=== PATIENT | female | born 1970 | race Caucasian/White ===

== ENCOUNTER 2023-08-22 11:04 | Inpatient (IN) | payer OTHER ==
[2023-08-22] MEDS ORDERED: CEFTRIAXONE 1 GM in DEXTROSE 5%-WATER - 50 ML IVPB ONE (11:27)
[2023-08-22 11:52] LABS: VENOUS BASE EXCESS 0.5 mmol/L (-2-2); VENOUS O2 SATURATION 49.7 % (70-80); VENOUS PH 7.394 (7.310-7.410)
[2023-08-22 11:54] LABS: BASO % 0.3 % (0-2.0); HEMATOCRIT 40.7 % (32.4-45.2); HEMOGLOBIN 13.7 GM/dL (10.7-15.3); LYMPH % 6.4 % (8-40); MCH 30.6 pg (25.7-33.7); MCHC 33.8 g/dl (32.0-36.0); MEAN CELL VOLUME 90.8 fl (80-96); MEAN PLT VOLUME 7.6 fl (7.5-11.1); NEUT % 85.3 % (42.8-82.8); PLATELET COUNT 350 10^3/uL (134-434); RBC 4.49 M/mm3 (3.60-5.2); RDW 12.8 % (11.6-15.6); WHITE BLOOD COUNT 12.2 K/mm3 (4.0-10.0)
[2023-08-22] MEDS ORDERED: CEFTRIAXONE 1 GM/50 ML BAG ONE (11:58)
[2023-08-22] MEDS ORDERED: AZITHROMYCIN IVPB 500 MG/250 ML BAG IVPB ONE ×2 (11:58→12:15)
[2023-08-22 12:02] LABS: INR 1.13 (0.83-1.09); PROTHROMBIN TIME (PATIENT) 13.1 SEC (9.7-13.0)
[2023-08-22 12:05] LABS: ACTIVATED PTT 29.5 SECONDS (25.2-36.5)
[2023-08-22 12:12] LABS: POTASSIUM 3.4 mmol/L (3.5-5.1)
[2023-08-22 12:14] LABS: ALBUMIN 2.9 g/dl (3.4-5.0); BLOOD UREA NITROGEN 13.8 mg/dL (7-18); CALCIUM 9.3 mg/dL (8.5-10.1)
[2023-08-22] MEDS ORDERED: ACETAMINOPHEN 1000 MG/100 ML BAG IVPB ONE (12:15)
[2023-08-22 12:17] LABS: CREATININE 0.8 mg/dL (0.55-1.3)
[2023-08-22 12:19] LABS: BILIRUBIN,TOTAL 0.7 mg/dL (0.2-1); TOT PROT 7.2 g/dl (6.4-8.2)
[2023-08-22 12:23] LABS: LACTIC ACID 2.6 mmol/L (0.4-2.0)
[2023-08-22] MEDS ORDERED: ACETAMINOPHEN INJECTION 100 ML IVPB ONE ×2 (12:48→19:50)
[2023-08-22] MEDS ORDERED: POTASSIUM CHLORIDE ORAL LIQUID 20 MEQ/15 ML PO ONE (12:53)
[2023-08-22] MEDS ORDERED: SODIUM CHLORIDE 0.9% 500 ML INFUS.BAG IV ONE (12:58)
[2023-08-22] MEDS ORDERED: ALBUTEROL SO4 0.083% IH SOL 2.5 MG/3 ML VIAL.NEB. NEB PRN (13:29)
[2023-08-22] MEDS ORDERED: methylPREDNISolone NA SUCC 40 MG/1 ML VIAL IVPUSH SCH (13:32)
[2023-08-22] MEDS ORDERED: ACETAMINOPHEN 1000 MG/100 ML BAG IVPB PRN (13:45)
[2023-08-22] MEDS ORDERED: methylPREDNISolone NA SUCC 40 MG/1 ML VIAL ONE (14:01)
[2023-08-22] MEDS ORDERED: guaiFENesin 200 MG/10 ML 10 ML UNIT-DOSE CUPS PO PRN (14:04)
[2023-08-22] MEDS ORDERED: POTASSIUM CHLORIDE ORAL LIQUID 20 MEQ/15 ML ONE (15:22)
[2023-08-22 16:18] LABS: LACTIC ACID 2.2 mmol/L (0.4-2.0)
[2023-08-22] MEDS ORDERED: ALBUTEROL SO4 2.5/IPRATROPIUM 0.5 INH SOL 3 ML VIAL.NEB. NEB ONE ×2 (17:45→19:54)
[2023-08-22] MEDS: ALBUTEROL SO4 2.5/IPRATROPIUM 0.5 INH SOL 3 ML VIAL.NEB. NEB SCH ×2 (17:53→20:21)
[2023-08-22] MEDS: SODIUM CHLORIDE 1,000 ML IV SCH (18:34)
[2023-08-22] MEDS: BUDESONIDE/FORMETEROL FUMARATE 160/4.5 mcg INHALER IH SCH (23:02)
[2023-08-22] MEDS: QUEtiapine FUMARATE 100 MG TABLET (FP) PO SCH (23:02)
[2023-08-22] MEDS: MONTELUKAST NA 10 MG TABLET PO SCH (23:02)
[2023-08-22] MEDS: ZIPRASIDONE 60 MG CAPSULE PO SCH (23:03)
[2023-08-22] MEDS: lamoTRIgine 100 MG TABLET PO SCH (23:03)
[2023-08-23] MEDS: ALBUTEROL SO4 2.5/IPRATROPIUM 0.5 INH SOL 3 ML VIAL.NEB. NEB SCH ×6 (04:00→21:47)
[2023-08-23 07:03] LABS: HEMATOCRIT 34.6 % (32.4-45.2); HEMOGLOBIN 11.7 GM/dL (10.7-15.3); MCH 30.9 pg (25.7-33.7); MCHC 33.8 g/dl (32.0-36.0); MEAN CELL VOLUME 91.6 fl (80-96); MEAN PLT VOLUME 7.4 fl (7.5-11.1); PLATELET COUNT 316 10^3/uL (134-434); RBC 3.78 M/mm3 (3.60-5.2); RDW 12.8 % (11.6-15.6); WHITE BLOOD COUNT 9.8 K/mm3 (4.0-10.0)
[2023-08-23 07:12] LABS: POTASSIUM 4.1 mmol/L (3.5-5.1)
[2023-08-23 07:14] LABS: ALBUMIN 2.4 g/dl (3.4-5.0); CALCIUM 8.1 mg/dL (8.5-10.1); MAGNESIUM 2.3 mg/dL (1.8-2.4)
[2023-08-23 07:17] LABS: CREATININE 0.6 mg/dL (0.55-1.3)
[2023-08-23 07:19] LABS: BILIRUBIN,TOTAL 0.4 mg/dL (0.2-1)
[2023-08-23] MEDS ORDERED: AZITHROMYCIN IVPB 250 MG in DEXTROSE 5%-WATER - 250 ML IVPB SCH (10:00)
[2023-08-23] MEDS: CEFTRIAXONE 1 GM in DEXTROSE 5%-WATER - 50 ML IVPB SCH (10:30)
[2023-08-23] MEDS: ENOXAPARIN NA (PORCINE) 40 MG/0.4 ML DISP.SYRIN SQ SCH (11:09)
[2023-08-23] MEDS: DULoxetine HCL 30 MG CAPSULE.DR PO SCH (11:09)
[2023-08-23] MEDS: lamoTRIgine 100 MG TABLET PO SCH ×2 (11:13→21:44)
[2023-08-23] MEDS: PANTOPRAZOLE 40 MG TABLET PO SCH (11:14)
[2023-08-23] MEDS: BUDESONIDE/FORMETEROL FUMARATE 160/4.5 mcg INHALER IH SCH ×2 (11:14→21:45)
[2023-08-23] MEDS: methylPREDNISolone NA SUCC 40 MG/1 ML VIAL IVPUSH SCH ×2 (11:54→18:11)
[2023-08-23 14:21] LABS: N-TERMINAL BNP 286.2 pg/ml (5-125)
[2023-08-23 16:50] LABS: HIV INTERPRETATION NEGATIVE (NEGATIVE)
[2023-08-23] MEDS: ACETAMINOPHEN 325 MG TABLET (FP) PO PRN (17:57)
[2023-08-23 18:08] LABS: EPI CELLS >36 /uL (0-25.1); HYALINE CASTS 1 /uL (0-3.1); URINE APPEARANCE CLEAR; URINE BACTERIA 188 /uL (0-1359); URINE BILIRUBIN NEGATIVE (NEGATIVE); URINE COLOR DK YELLOW; URINE GLUCOSE (UA) NEGATIVE (NEGATIVE); URINE KETONE 2+ (NEGATIVE); URINE LEUK ESTERASE NEGATIVE (NEGATIVE); URINE NITRITE NEGATIVE (NEGATIVE); URINE PROTEIN 1+ (NEGATIVE); URINE RBC 13 /uL (0-23.9); URINE UROBILINOGEN 0.2 mg/dL (0.2-1.0); URINE WBC 8 /uL (0-25.8)
[2023-08-23] MEDS: SODIUM CHLORIDE 1,000 ML IV SCH (18:49)
[2023-08-23] MEDS: ZIPRASIDONE 60 MG CAPSULE PO SCH (21:44)
[2023-08-23] MEDS: MONTELUKAST NA 10 MG TABLET PO SCH (21:44)
[2023-08-23] MEDS: QUEtiapine FUMARATE 100 MG TABLET (FP) PO SCH (21:44)
[2023-08-23] MEDS ORDERED: DOXYCYCLINE INJECTION 100 MG in DEXTROSE 5%-WATER 100 ML IVPB SCH (22:00)
[2023-08-24] MEDS: ALBUTEROL SO4 2.5/IPRATROPIUM 0.5 INH SOL 3 ML VIAL.NEB. NEB SCH ×6 (00:37→20:55)
[2023-08-24] MEDS: methylPREDNISolone NA SUCC 40 MG/1 ML VIAL IVPUSH SCH ×3 (02:02→17:38)
[2023-08-24 07:34] LABS: BASO % 0.1 % (0-2.0); HEMATOCRIT 34.1 % (32.4-45.2); HEMOGLOBIN 11.5 GM/dL (10.7-15.3); LYMPH % 7.2 % (8-40); MCH 30.9 pg (25.7-33.7); MCHC 33.8 g/dl (32.0-36.0); MEAN CELL VOLUME 91.3 fl (80-96); MEAN PLT VOLUME 7.1 fl (7.5-11.1); MONO % 3.4 % (3.8-10.2); NEUT % 89.3 % (42.8-82.8); PLATELET COUNT 391 10^3/uL (134-434); RBC 3.74 M/mm3 (3.60-5.2); WHITE BLOOD COUNT 9.7 K/mm3 (4.0-10.0)
[2023-08-24 07:52] LABS: POTASSIUM 3.9 mmol/L (3.5-5.1)
[2023-08-24 07:56] LABS: ALBUMIN 2.4 g/dl (3.4-5.0); BLOOD UREA NITROGEN 14.9 mg/dL (7-18); CALCIUM 8.5 mg/dL (8.5-10.1)
[2023-08-24 07:59] LABS: CREATININE 0.6 mg/dL (0.55-1.3); PHOSPHOROUS 3.9 mg/dL (2.5-4.9)
[2023-08-24 08:00] LABS: MAGNESIUM 2.6 mg/dL (1.8-2.4)
[2023-08-24 08:01] LABS: BILIRUBIN,TOTAL 0.6 mg/dL (0.2-1); TOT PROT 6.5 g/dl (6.4-8.2)
[2023-08-24] MEDS ORDERED: MAGNESIUM SULFATE IN WATER 2 GM/50 ML IVPB IVPB ONE (08:13)
[2023-08-24] MEDS: CEFTRIAXONE 1 GM in DEXTROSE 5%-WATER - 50 ML IVPB SCH (10:01)
[2023-08-24] MEDS: ENOXAPARIN NA (PORCINE) 40 MG/0.4 ML DISP.SYRIN SQ SCH (10:02)
[2023-08-24] MEDS: PANTOPRAZOLE 40 MG TABLET PO SCH (10:02)
[2023-08-24] MEDS: DULoxetine HCL 30 MG CAPSULE.DR PO SCH (10:02)
[2023-08-24] MEDS: AZITHROMYCIN IVPB 250 MG in DEXTROSE 5%-WATER - 250 ML IVPB SCH (10:03)
[2023-08-24] MEDS: BUDESONIDE/FORMETEROL FUMARATE 160/4.5 mcg INHALER IH SCH ×2 (10:10→21:09)
[2023-08-24] MEDS: lamoTRIgine 100 MG TABLET PO SCH ×2 (11:26→21:09)
[2023-08-24] MEDS: ZIPRASIDONE 60 MG CAPSULE PO SCH (21:09)
[2023-08-24] MEDS: QUEtiapine FUMARATE 100 MG TABLET (FP) PO SCH (21:09)
[2023-08-24] MEDS: MONTELUKAST NA 10 MG TABLET PO SCH (21:09)
[2023-08-25] MEDS: ALBUTEROL SO4 2.5/IPRATROPIUM 0.5 INH SOL 3 ML VIAL.NEB. NEB SCH ×6 (00:32→21:36)
[2023-08-25] MEDS: methylPREDNISolone NA SUCC 40 MG/1 ML VIAL IVPUSH SCH ×3 (02:38→17:29)
[2023-08-25 07:04] LABS: HEMATOCRIT 32.5 % (32.4-45.2); MCH 30.9 pg (25.7-33.7); MCHC 33.8 g/dl (32.0-36.0); MEAN CELL VOLUME 91.6 fl (80-96); MEAN PLT VOLUME 7.1 fl (7.5-11.1); PLATELET COUNT 404 10^3/uL (134-434); RBC 3.55 M/mm3 (3.60-5.2); RDW 12.9 % (11.6-15.6)
[2023-08-25 07:19] LABS: POTASSIUM 4.1 mmol/L (3.5-5.1)
[2023-08-25 07:22] LABS: CALCIUM 8.6 mg/dL (8.5-10.1)
[2023-08-25 07:23] LABS: BLOOD UREA NITROGEN 22.1 mg/dL (7-18)
[2023-08-25 07:26] LABS: CREATININE 0.6 mg/dL (0.55-1.3)
[2023-08-25] MEDS ORDERED: LACTATED RINGERS SOLUTION 1,000 ML/1,000 ML INFUS.BAG IV SCH (08:15)
[2023-08-25] MEDS ORDERED: guaiFENesin/CODEINE 5 ML UNIT-DOSE CUPS PO PRN (08:52)
[2023-08-25] MEDS: ENOXAPARIN NA (PORCINE) 40 MG/0.4 ML DISP.SYRIN SQ SCH (09:24)
[2023-08-25] MEDS: CEFTRIAXONE 1 GM in DEXTROSE 5%-WATER - 50 ML IVPB SCH (09:24)
[2023-08-25] MEDS: lamoTRIgine 100 MG TABLET PO SCH ×2 (09:25→22:34)
[2023-08-25] MEDS: PANTOPRAZOLE 40 MG TABLET PO SCH (09:25)
[2023-08-25] MEDS: DULoxetine HCL 30 MG CAPSULE.DR PO SCH (09:25)
[2023-08-25] MEDS: BUDESONIDE/FORMETEROL FUMARATE 160/4.5 mcg INHALER IH SCH ×2 (09:28→22:37)
[2023-08-25] MEDS: AZITHROMYCIN IVPB 250 MG in DEXTROSE 5%-WATER - 250 ML IVPB SCH (09:29)
[2023-08-25] MEDS: guaiFENesin/CODEINE 5 ML UNIT-DOSE CUPS PO PRN (12:12)
[2023-08-25] MEDS: ZIPRASIDONE 60 MG CAPSULE PO SCH (22:34)
[2023-08-25] MEDS: MONTELUKAST NA 10 MG TABLET PO SCH (22:34)
[2023-08-25] MEDS: QUEtiapine FUMARATE 100 MG TABLET (FP) PO SCH (22:34)
[2023-08-26] MEDS: ALBUTEROL SO4 2.5/IPRATROPIUM 0.5 INH SOL 3 ML VIAL.NEB. NEB SCH ×6 (00:26→20:50)
[2023-08-26] MEDS: methylPREDNISolone NA SUCC 40 MG/1 ML VIAL IVPUSH SCH ×3 (02:52→17:26)
[2023-08-26 07:31] LABS: BASO % 0.1 % (0-2.0); EOS % 0.1 % (0-4.5); HEMOGLOBIN 10.9 GM/dL (10.7-15.3); MCH 30.5 pg (25.7-33.7); MEAN CELL VOLUME 92.3 fl (80-96); MONO % 10.1 % (3.8-10.2); NEUT % 69.7 % (42.8-82.8); PLATELET COUNT 439 10^3/uL (134-434); RBC 3.57 M/mm3 (3.60-5.2); RDW 13.2 % (11.6-15.6); WHITE BLOOD COUNT 7.7 K/mm3 (4.0-10.0)
[2023-08-26 07:36] LABS: POTASSIUM 4.2 mmol/L (3.5-5.1)
[2023-08-26 07:37] LABS: ALBUMIN 2.6 g/dl (3.4-5.0); BLOOD UREA NITROGEN 22.5 mg/dL (7-18); CALCIUM 8.8 mg/dL (8.5-10.1)
[2023-08-26 07:40] LABS: CREATININE 0.7 mg/dL (0.55-1.3)
[2023-08-26 07:42] LABS: BILIRUBIN,TOTAL 0.2 mg/dL (0.2-1); TOT PROT 6.2 g/dl (6.4-8.2)
[2023-08-26] MEDS: DULoxetine HCL 30 MG CAPSULE.DR PO SCH (09:01)
[2023-08-26] MEDS: CEFTRIAXONE 1 GM in DEXTROSE 5%-WATER - 50 ML IVPB SCH (09:02)
[2023-08-26] MEDS: PANTOPRAZOLE 40 MG TABLET PO SCH (09:02)
[2023-08-26] MEDS: lamoTRIgine 100 MG TABLET PO SCH ×2 (09:02→21:30)
[2023-08-26] MEDS: ENOXAPARIN NA (PORCINE) 40 MG/0.4 ML DISP.SYRIN SQ SCH (09:04)
[2023-08-26] MEDS: BUDESONIDE/FORMETEROL FUMARATE 160/4.5 mcg INHALER IH SCH ×2 (09:04→21:30)
[2023-08-26] MEDS: guaiFENesin/CODEINE 5 ML UNIT-DOSE CUPS PO PRN (09:05)
[2023-08-26] MEDS: AZITHROMYCIN IVPB 250 MG in DEXTROSE 5%-WATER - 250 ML IVPB SCH (10:19)
[2023-08-26] MEDS: guaiFENesin 200 MG/10 ML 10 ML UNIT-DOSE CUPS PO PRN ×2 (17:26→22:07)
[2023-08-26] MEDS: QUEtiapine FUMARATE 100 MG TABLET (FP) PO SCH (21:30)
[2023-08-26] MEDS: MONTELUKAST NA 10 MG TABLET PO SCH (21:30)
[2023-08-26] MEDS: ZIPRASIDONE 60 MG CAPSULE PO SCH (22:07)
[2023-08-27] MEDS: ALBUTEROL SO4 2.5/IPRATROPIUM 0.5 INH SOL 3 ML VIAL.NEB. NEB SCH ×6 (00:26→21:16)
[2023-08-27] MEDS: methylPREDNISolone NA SUCC 40 MG/1 ML VIAL IVPUSH SCH ×3 (01:02→17:21)
[2023-08-27 06:51] LABS: HEMATOCRIT 34.2 % (32.4-45.2); HEMOGLOBIN 11.2 GM/dL (10.7-15.3); LYMPH % 17.7 % (8-40); MCH 30.4 pg (25.7-33.7); MCHC 32.9 g/dl (32.0-36.0); MEAN CELL VOLUME 92.6 fl (80-96); MEAN PLT VOLUME 6.9 fl (7.5-11.1); MONO % 7.4 % (3.8-10.2); NEUT % 74.9 % (42.8-82.8); PLATELET COUNT 425 10^3/uL (134-434); RDW 12.9 % (11.6-15.6); WHITE BLOOD COUNT 4.7 K/mm3 (4.0-10.0)
[2023-08-27 07:08] LABS: POTASSIUM 5.1 mmol/L (3.5-5.1)
[2023-08-27 07:13] LABS: CALCIUM 9.1 mg/dL (8.5-10.1)
[2023-08-27 07:14] LABS: ALBUMIN 2.7 g/dl (3.4-5.0); BLOOD UREA NITROGEN 17.2 mg/dL (7-18); MAGNESIUM 2.4 mg/dL (1.8-2.4)
[2023-08-27 07:17] LABS: CREATININE 0.6 mg/dL (0.55-1.3)
[2023-08-27 07:18] LABS: TOT PROT 6.2 g/dl (6.4-8.2)
[2023-08-27 08:05] LABS: BILIRUBIN,TOTAL 0.6 mg/dL (0.2-1)
[2023-08-27] MEDS: CEFTRIAXONE 1 GM in DEXTROSE 5%-WATER - 50 ML IVPB SCH (09:34)
[2023-08-27] MEDS: AZITHROMYCIN IVPB 250 MG in DEXTROSE 5%-WATER - 250 ML IVPB SCH (09:34)
[2023-08-27] MEDS: PANTOPRAZOLE 40 MG TABLET PO SCH (09:35)
[2023-08-27] MEDS: ENOXAPARIN NA (PORCINE) 40 MG/0.4 ML DISP.SYRIN SQ SCH (09:35)
[2023-08-27] MEDS: DULoxetine HCL 30 MG CAPSULE.DR PO SCH (09:35)
[2023-08-27] MEDS: lamoTRIgine 100 MG TABLET PO SCH ×2 (09:36→21:50)
[2023-08-27] MEDS: guaiFENesin 200 MG/10 ML 10 ML UNIT-DOSE CUPS PO PRN (09:37)
[2023-08-27] MEDS: BUDESONIDE/FORMETEROL FUMARATE 160/4.5 mcg INHALER IH SCH ×2 (09:50→21:49)
[2023-08-27] MEDS ORDERED: guaiFENesin/CODEINE 5 ML UNIT-DOSE CUPS PO SCH ×2 (11:30→11:31)
[2023-08-27] MEDS ORDERED: guaiFENesin/CODEINE 10 ML UNIT-DOSE CUPS PO ONE (11:45)
[2023-08-27] MEDS: MONTELUKAST NA 10 MG TABLET PO SCH (21:49)
[2023-08-27] MEDS: QUEtiapine FUMARATE 100 MG TABLET (FP) PO SCH (21:49)
[2023-08-27] MEDS: ZIPRASIDONE 60 MG CAPSULE PO SCH (21:50)
[2023-08-27] MEDS: guaiFENesin/CODEINE 10 ML UNIT-DOSE CUPS PO SCH (21:50)
[2023-08-28] MEDS: ALBUTEROL SO4 2.5/IPRATROPIUM 0.5 INH SOL 3 ML VIAL.NEB. NEB SCH ×6 (01:58→20:05)
[2023-08-28] MEDS: methylPREDNISolone NA SUCC 40 MG/1 ML VIAL IVPUSH SCH ×3 (02:12→18:34)
[2023-08-28] MEDS: BENZOCAINE/MENTH/CETYLPYRD CL 1 EACH LOZENGE MM PRN ×4 (06:45→22:26)
[2023-08-28 07:20] LABS: BASO % 0.1 % (0-2.0); HEMATOCRIT 34.1 % (32.4-45.2); HEMOGLOBIN 11.3 GM/dL (10.7-15.3); LYMPH % 18.9 % (8-40); MCH 30.5 pg (25.7-33.7); MCHC 33.3 g/dl (32.0-36.0); MEAN CELL VOLUME 91.5 fl (80-96); MONO % 10.3 % (3.8-10.2); NEUT % 70.7 % (42.8-82.8); PLATELET COUNT 473 10^3/uL (134-434); RBC 3.73 M/mm3 (3.60-5.2); RDW 13.4 % (11.6-15.6); WHITE BLOOD COUNT 5.6 K/mm3 (4.0-10.0)
[2023-08-28 08:03] LABS: POTASSIUM 5.2 mmol/L (3.5-5.1)
[2023-08-28 08:06] LABS: ALBUMIN 2.8 g/dl (3.4-5.0); CALCIUM 9.2 mg/dL (8.5-10.1)
[2023-08-28 08:07] LABS: MAGNESIUM 2.7 mg/dL (1.8-2.4)
[2023-08-28 08:09] LABS: PHOSPHOROUS 4.3 mg/dL (2.5-4.9)
[2023-08-28 08:10] LABS: BILIRUBIN,TOTAL 0.3 mg/dL (0.2-1); CREATININE 0.7 mg/dL (0.55-1.3)
[2023-08-28] MEDS: ENOXAPARIN NA (PORCINE) 40 MG/0.4 ML DISP.SYRIN SQ SCH (09:47)
[2023-08-28] MEDS: DULoxetine HCL 30 MG CAPSULE.DR PO SCH (09:48)
[2023-08-28] MEDS: CEFTRIAXONE 1 GM in DEXTROSE 5%-WATER - 50 ML IVPB SCH (09:48)
[2023-08-28] MEDS: guaiFENesin/CODEINE 10 ML UNIT-DOSE CUPS PO SCH ×4 (09:48→22:22)
[2023-08-28] MEDS: PANTOPRAZOLE 40 MG TABLET PO SCH (09:50)
[2023-08-28] MEDS: AZITHROMYCIN IVPB 250 MG in DEXTROSE 5%-WATER - 250 ML IVPB SCH (10:14)
[2023-08-28] MEDS: BUDESONIDE/FORMETEROL FUMARATE 160/4.5 mcg INHALER IH SCH ×2 (10:14→22:23)
[2023-08-28] MEDS: ACETAMINOPHEN 325 MG TABLET (FP) PO PRN (10:37)
[2023-08-28] MEDS: lamoTRIgine 100 MG TABLET PO SCH ×2 (10:48→22:22)
[2023-08-28] MEDS: QUEtiapine FUMARATE 100 MG TABLET (FP) PO SCH (22:22)
[2023-08-28] MEDS: MONTELUKAST NA 10 MG TABLET PO SCH (22:22)
[2023-08-28] MEDS: ZIPRASIDONE 60 MG CAPSULE PO SCH (22:22)
[2023-08-29] MEDS: methylPREDNISolone NA SUCC 40 MG/1 ML VIAL IVPUSH SCH ×3 (02:14→17:42)
[2023-08-29] MEDS: ALBUTEROL SO4 2.5/IPRATROPIUM 0.5 INH SOL 3 ML VIAL.NEB. NEB SCH ×7 (04:00→23:45)
[2023-08-29] MEDS: BENZOCAINE/MENTHOL (CHLORASEPTIC ) LOZENGE MM PRN ×2 (07:09→10:17)
[2023-08-29 07:22] LABS: HEMATOCRIT 35.9 % (32.4-45.2); HEMOGLOBIN 12.2 GM/dL (10.7-15.3); MCH 31.1 pg (25.7-33.7); MCHC 33.9 g/dl (32.0-36.0); MEAN CELL VOLUME 91.8 fl (80-96); MEAN PLT VOLUME 7.1 fl (7.5-11.1); PLATELET COUNT 482 10^3/uL (134-434); RBC 3.91 M/mm3 (3.60-5.2); RDW 13.1 % (11.6-15.6); WHITE BLOOD COUNT 6.8 K/mm3 (4.0-10.0)
[2023-08-29 07:36] LABS: POTASSIUM 4.4 mmol/L (3.5-5.1)
[2023-08-29 07:40] LABS: CALCIUM 8.8 mg/dL (8.5-10.1); MAGNESIUM 2.2 mg/dL (1.8-2.4)
[2023-08-29 07:43] LABS: CREATININE 0.7 mg/dL (0.55-1.3); PHOSPHOROUS 3.4 mg/dL (2.5-4.9)
[2023-08-29 07:45] LABS: BILIRUBIN,TOTAL 0.4 mg/dL (0.2-1); TOT PROT 6.3 g/dl (6.4-8.2)
[2023-08-29 07:51] LABS: ALBUMIN 2.9 g/dl (3.4-5.0)
[2023-08-29] MEDS: BUDESONIDE/FORMETEROL FUMARATE 160/4.5 mcg INHALER IH SCH ×2 (09:52→21:35)
[2023-08-29] MEDS: guaiFENesin/CODEINE 10 ML UNIT-DOSE CUPS PO SCH ×4 (09:54→21:05)
[2023-08-29] MEDS: PANTOPRAZOLE 40 MG TABLET PO SCH (09:54)
[2023-08-29] MEDS: CEFTRIAXONE 1 GM in DEXTROSE 5%-WATER - 50 ML IVPB SCH (09:54)
[2023-08-29] MEDS: DULoxetine HCL 30 MG CAPSULE.DR PO SCH (09:54)
[2023-08-29] MEDS: lamoTRIgine 100 MG TABLET PO SCH ×2 (09:54→21:05)
[2023-08-29] MEDS: ENOXAPARIN NA (PORCINE) 40 MG/0.4 ML DISP.SYRIN SQ SCH (09:54)
[2023-08-29] MEDS: AZITHROMYCIN IVPB 250 MG in DEXTROSE 5%-WATER - 250 ML IVPB SCH (09:55)
[2023-08-29 15:40] VITALS: BMI 26.9
[2023-08-29] MEDS: MONTELUKAST NA 10 MG TABLET PO SCH (21:05)
[2023-08-29] MEDS: QUEtiapine FUMARATE 100 MG TABLET (FP) PO SCH (21:05)
[2023-08-29] MEDS: ZIPRASIDONE 60 MG CAPSULE PO SCH (21:05)
[2023-08-29 21:07] LABS: ATYPICAL pANCA <1:20 titer (Neg:<1:20); C-ANCA <1:20 titer (Neg:<1:20)
[2023-08-29] MEDS ORDERED: methylPREDNISolone NA SUCC 40 MG/1 ML VIAL IVPUSH SCH (22:00)
[2023-08-30] MEDS: methylPREDNISolone NA SUCC 40 MG/1 ML VIAL IVPUSH SCH ×2 (01:01→10:38)
[2023-08-30] MEDS: ALBUTEROL SO4 2.5/IPRATROPIUM 0.5 INH SOL 3 ML VIAL.NEB. NEB SCH ×6 (04:55→23:07)
[2023-08-30 07:46] LABS: HEMATOCRIT 35.7 % (32.4-45.2); HEMOGLOBIN 12.1 GM/dL (10.7-15.3); MCH 30.6 pg (25.7-33.7); MCHC 33.9 g/dl (32.0-36.0); MEAN CELL VOLUME 90.2 fl (80-96); MEAN PLT VOLUME 7.2 fl (7.5-11.1); PLATELET COUNT 520 10^3/uL (134-434); RBC 3.95 M/mm3 (3.60-5.2); RDW 13.2 % (11.6-15.6); WHITE BLOOD COUNT 7.5 K/mm3 (4.0-10.0)
[2023-08-30 07:53] LABS: POTASSIUM 4.3 mmol/L (3.5-5.1)
[2023-08-30 07:55] LABS: CALCIUM 8.9 mg/dL (8.5-10.1)
[2023-08-30 07:56] LABS: ALBUMIN 2.8 g/dl (3.4-5.0); MAGNESIUM 2.3 mg/dL (1.8-2.4)
[2023-08-30 07:59] LABS: CREATININE 0.7 mg/dL (0.55-1.3); PHOSPHOROUS 4.1 mg/dL (2.5-4.9)
[2023-08-30 08:00] LABS: BILIRUBIN,TOTAL 0.2 mg/dL (0.2-1)
[2023-08-30] MEDS: PANTOPRAZOLE 40 MG TABLET PO SCH (09:53)
[2023-08-30] MEDS: DULoxetine HCL 30 MG CAPSULE.DR PO SCH (09:53)
[2023-08-30] MEDS: guaiFENesin/CODEINE 10 ML UNIT-DOSE CUPS PO SCH ×4 (09:53→22:00)
[2023-08-30] MEDS: ENOXAPARIN NA (PORCINE) 40 MG/0.4 ML DISP.SYRIN SQ SCH (09:53)
[2023-08-30] MEDS: lamoTRIgine 100 MG TABLET PO SCH ×2 (09:53→22:00)
[2023-08-30] MEDS: BUDESONIDE/FORMETEROL FUMARATE 160/4.5 mcg INHALER IH SCH ×2 (09:55→22:01)
[2023-08-30 18:55] VITALS: RESP 20
[2023-08-30] MEDS ORDERED: ALBUTEROL SO4 0.083% IH SOL 2.5 MG/3 ML VIAL.NEB. NEB PRN (20:14)
[2023-08-30] MEDS ORDERED: ACETAMINOPHEN 325 MG TABLET (FP) PO PRN (20:14)
[2023-08-30] MEDS ORDERED: BENZOCAINE/MENTHOL (CHLORASEPTIC ) LOZENGE MM PRN (20:14)
[2023-08-30] MEDS ORDERED: ZIPRASIDONE 60 MG CAPSULE PO SCH (22:00)
[2023-08-30] MEDS ORDERED: QUEtiapine FUMARATE 100 MG TABLET (FP) PO SCH (22:00)
[2023-08-30] MEDS ORDERED: MONTELUKAST NA 10 MG TABLET PO SCH (22:00)
[2023-08-31] MEDS: ALBUTEROL SO4 2.5/IPRATROPIUM 0.5 INH SOL 3 ML VIAL.NEB. NEB SCH ×4 (04:00→15:15)
[2023-08-31 08:36] LABS: HEMATOCRIT 36.2 % (32.4-45.2); MCH 30.2 pg (25.7-33.7); MCHC 33.2 g/dl (32.0-36.0); MEAN CELL VOLUME 90.9 fl (80-96); MEAN PLT VOLUME 6.9 fl (7.5-11.1); PLATELET COUNT 478 10^3/uL (134-434); RBC 3.99 M/mm3 (3.60-5.2); RDW 13.7 % (11.6-15.6); WHITE BLOOD COUNT 7.5 K/mm3 (4.0-10.0)
[2023-08-31 08:54] LABS: POTASSIUM 4.3 mmol/L (3.5-5.1)
[2023-08-31 08:56] LABS: CALCIUM 8.8 mg/dL (8.5-10.1)
[2023-08-31 08:57] LABS: ALBUMIN 2.7 g/dl (3.4-5.0); BLOOD UREA NITROGEN 22.2 mg/dL (7-18)
[2023-08-31 09:00] LABS: CREATININE 0.9 mg/dL (0.55-1.3)
[2023-08-31 09:02] LABS: BILIRUBIN,TOTAL 0.3 mg/dL (0.2-1); TOT PROT 5.6 g/dl (6.4-8.2)
[2023-08-31] MEDS: lamoTRIgine 100 MG TABLET PO SCH (09:49)
[2023-08-31] MEDS: guaiFENesin/CODEINE 10 ML UNIT-DOSE CUPS PO SCH ×2 (09:50→13:03)
[2023-08-31] MEDS: BUDESONIDE/FORMETEROL FUMARATE 160/4.5 mcg INHALER IH SCH (09:50)
[2023-08-31] MEDS ORDERED: DULoxetine HCL 30 MG CAPSULE.DR PO SCH (10:00)
[2023-08-31] MEDS ORDERED: predniSONE 20 MG TABLET (UD) PO SCH ×2 (10:00)
[2023-08-31] MEDS ORDERED: ENOXAPARIN NA (PORCINE) 40 MG/0.4 ML DISP.SYRIN SQ SCH (10:00)
[2023-08-31] MEDS ORDERED: PANTOPRAZOLE 40 MG TABLET PO SCH (10:00)
[2023-08-31 15:18] VITALS: BP 101/56; PULSE 72; TEMP 98.3
== END 2023-08-31 15:52 | disposition home or self-care (01) | DRG 871 ==
LOC: JER 11:04 → JERBED 12:48 → J4W 20:33 → J8W 08-30 18:33
PROVIDERS: ADMIT Internal Medicine; ATTEND Nurse Practitioner Family
DX: A41.89 Other specified sepsis (principal); J12.89 Other viral pneumonia; J96.01 Acute respiratory failure with hypoxia; E87.20 Acidosis, unspecified; F17.210 Nicotine dependence, cigarettes, uncomplicated; R00.0 Tachycardia, unspecified; D72.829 Elevated white blood cell count, unspecified; R19.7 Diarrhea, unspecified; E87.6 Hypokalemia; F31.9 Bipolar disorder, unspecified; B97.89 Other viral agents as the cause of diseases classified elsewhere; J98.4 Other disorders of lung
CPT/HCPCS: 0241U-QW; 36415; 71045-TC-FY; 71250-TC; 80048; 80053; 81003; 82272; 82550; 82553; 82803; 83520; 83605; 83615; 83735; 83880; 84100; 84484; 84703; 85025; 85027; 85610; 85730; 86038; 86140; 86256; 86431; 86850; 86900; 86901; 87040; 87045; 87046; 87077; 87324; 87389; 87449; 87633; 87635; 87899; 93005; 93010; 93306-TC; 94640; 94660; 94761; 97116-GP; 97162-GP; 99291